=== PATIENT | male | born 1995 | race Caucasian/White ===

== ENCOUNTER 2019-09-04 07:22 | Emergency (ER) | payer BC ==
--- NOTE | 2019-09-04 08:36 | ED ---
Throat Pain/Nasal Congestion - HPI Summary HPI Summary: 24 yr old male with sore throat for three days. No fever or chills. No NV. He is a student. He denies trouble swallowing. No change in voice. he also complains of 3/10 right flank pain. Onset yesterday. no better or worse with anything. no testicular pain. No dysuria, no frequency of urination. No other complaints. - History of Current Complaint Chief Complaint: UCGeneralIllness Time Seen by Provider: 09/04/19 07:48 - Allergies/Home Medications Allergies/Adverse Reactions: Allergies Allergy/AdvReac Type Severity Reaction Status Date / Time No Known Allergies Allergy Verified 09/04/19 07:40 Home Medications: Home Medications NK [No Home Medications Reported] 09/04/19 [History Confirmed 09/04/19] PMH/Surg Hx/FS Hx/Imm Hx Infectious Disease History: No Infectious Disease History: Denies: Traveled Outside the [place] in Last 30 Days - Family History Known Family History: Positive: None - Social History Occupation: Student Alcohol Use: Occasionally Substance Use Type: Reports: None Smoking Status (MU): Never Smoked Tobacco Review of Systems Constitutional: Negative Positive: Ear Ache Positive: flank pain All Other Systems Reviewed And Are Negative: Yes Physical Exam Triage Information Reviewed: Yes Vital Signs On Initial Exam: Initial Vitals Temp Pulse Resp BP Pulse Ox 98.3 F 90 16 116/82 100 09/04/19 07:39 09/04/19 07:39 09/04/19 07:39 09/04/19 07:39 09/04/19 07:39 Vital Signs Reviewed: Yes Appearance: Positive: Well-Appearing, No Pain Distress Skin: Positive: Warm Head/Face: Positive: Normal Head/Face Inspection Eyes: Positive: EOMI ENT: Positive: Normal ENT inspection, Pharyngeal erythema, TMs normal Neck: Positive: Nontender Respiratory/Lung Sounds: Positive: Clear to Auscultation, Breath Sounds Present Cardiovascular: Positive: RRR. Negative: Murmur Abdomen Description: Positive: Nontender, Soft. Negative: CVA Tenderness (R), CVA Tenderness (L), Distended Musculoskeletal: Positive: Strength/ROM Intact Neurological: Positive: Sensory/Motor Intact, Alert, Oriented to Person Place, Time, CN Intact II-III, Normal Gait, Speech Normal Diagnostics - Vital Signs Vital Signs Temp Pulse Resp BP Pulse Ox 09/04/19 07:39 98.3 F 90 16 116/82 100 - Laboratory Lab Results: Lab Results 09/04/19 09/04/19 Range/Units 07:55 07:56 POC Urine Color Yellow POC Urine Clarity Clear POC Urine pH 5.5 (5-9) POC Ur Specif [place] 1.025 (1.010-1.030) POC Urine Protein Negative (Negative) POC Ur Glucose (UA) Negative (Negative) POC Urine Ketones Negative (Negative) POC Urine Blood Trace-intact A (Negative) POC Urine Nitrite Negative (Negative) POC Urine Bilirubin Negative (Negative) POC Urine Urobilinogen 0.2 (Negative) POC U Leukocyte Esteras Negative (Negative) Group A Strep Rapid Negative (Negative) Lab Statement: Any lab studies that have been ordered have been reviewed, and results considered in the medical decision making process. - Ultrasound renal Ultrasound Interpretation Completed By: Radiologist - nad EENT Course/Dx - Course Course Of Treatment: 24 yr old with pharyngitis neg strep; right flank pain, trace blood and neg US. FU with PMD. - Diagnoses Provider Diagnoses: Right flank pain, Upper respiratory infection Discharge ED - Sign-Out/Discharge Documenting (check all that apply): Patient Departure All imaging exams completed and their final reports reviewed: Yes - Discharge Plan Condition: Good Disposition: HOME Patient Education Materials: Pharyngitis (ED), Hematuria (ED), Flank Pain (ED) Referrals: Melyssa MONTANO,Lv Mccain [Primary Care Provider] - 2 Days - Billing Disposition and Condition Condition: GOOD Disposition: Home
[2019-09-04 09:54] VITALS: BP 107/62
== END 2019-09-04 09:59 | disposition home or self-care (01) ==
LOC: UCCORT 07:22
DX: J06.9 Acute upper respiratory infection, unspecified (principal); J02.9 Acute pharyngitis, unspecified; R10.9 Unspecified abdominal pain; H92.09 Otalgia, unspecified ear
CPT/HCPCS: 76775; 81003; 87651; 99202; G0463

== ENCOUNTER 2019-11-28 07:43 | Emergency (ER) | payer BC ==
[2019-11-28 07:59] VITALS: BP 115/63
[2019-11-28] MEDS ORDERED: Ibuprofen TAB* 600 MG PO ONE (08:03)
[2019-11-28 08:09] LABS: Influenza A Molecular POSITIVE (Negative)
--- NOTE | 2019-11-28 08:30 | UC ---
FLU HPI - HPI Summary HPI Summary: Pt presents to reporting body aches, cough, sore throat, congestion progressive x 36 hours Pt with decrease appetite, no n/v/d No rash + sick contact little OTC meds -none today medicaitons as entered in EMR by physiatrist reviewed - History of Current Complaint Chief Complaint: UCGeneralIllness Stated Complaint: FLU LIKE SYMPTOMS Time Seen by Provider: 11/28/19 08:22 Pain Intensity: 4 - Allergy/Home Medications Allergies/Adverse Reactions: Allergies Allergy/AdvReac Type Severity Reaction Status Date / Time No Known Allergies Allergy Verified 11/28/19 07:55 Home Medications: Home Medications D-Methorphan/PE/Acetaminophen [Daytime Cold Multi-Symp Gelcap] 1 each PO ONCE [History Confirmed 11/28/19] PMH/Surg Hx/FS Hx/Imm Hx Previously Healthy: Yes - Surgical History Surgical History: Yes Surgery Procedure, Year, and Place: wisdom. adenoidectomy - Family History Known Family History: Positive: Non-Contributory - Social History Occupation: Employed Full-time Lives: With Family Alcohol Use: Occasionally Substance Use Type: None Smoking Status (MU): Never Smoked Tobacco Review of Systems All Other Systems Reviewed And Are Negative: Yes Constitutional: Positive: Fever, Fatigue ENT: Positive: Sore Throat, Nasal Discharge, Sinus Congestion, Sinus Pain/ Tenderness Respiratory: Positive: Cough Cardiovascular: Positive: Negative Gastrointestinal: Positive: Nausea Physical Exam - Summary Physical Exam Summary: Vital Signs Reviewed: Yes A+Ox3, tired appearing, congested Eyes: Conjunctiva Clear, SEVER[place]. EOM intact and full ENT: Hearing grossly normal TM x 2 clear, turbinates inflammed, +PND, mmoist, uvula midline, no exudate, no erythema Neck: Positive: Supple Respiratory: Positive: No respiratory distress, No accessory muscle use + CTA throughout no w/r, intermittent cough Cardiovascular: RRR nl s1, s2 no m/r CBT <2 sec abd soft + BS nt/nd no guarding, no distension Musculoskeletal Exam: FAULKNRE x 4 without difficulty Strength Intact, ROM Intact Neurological: Positive: Alert, + sensation throughout Psychological: Positive: Normal Response To correctional counselor Skin: Positive: no rash, no ecchymosis Vital Signs: Initial Vital Signs Temp 102.6 F 11/28/19 07:55 Pulse 109 11/28/19 07:55 Resp 15 11/28/19 07:55 BP 115/63 11/28/19 07:55 Pulse Ox 97 11/28/19 07:55 Flu Course/Dx - Course Course Of Treatment: Pt presents with 2 days congestion, fever, cough, sore throat. PT has not take PTC meds today. decreased appetitis on exam pt with fever and elevated HR appears tired, congestion lungs clear with itnermittent cough will give antipyretic + influenza secretion precaution humidified air hydrate motrin/apap rest return precaution worlk note - Differential Dx/Diagnosis Differential Diagnosis/HQI/PQRI: Bronchitis Provider Diagnosis: Influenza Discharge ED - Sign-Out/Discharge Documenting (check all that apply): Patient Departure All imaging exams completed and their final reports reviewed: No Studies - Discharge Plan Condition: Stable Disposition: HOME Prescriptions: Oseltamivir Phosphate [Tamiflu] 75 mg PO BID #10 capsule Patient Education Materials: Influenza (ED) Forms: *Work Release Referrals: Melyssa MONTANO,Lv Mccain [Primary Care Provider] - Additional Instructions: - Stay well hydrated. Drink plenty of non-alcoholic, non-caffinated beverages. - Take Tamiflu as prescribed - Alternate ibuprofen (Advil, Motrin) 600mg and Tylenol 1000mg every 3 hours for pain or fever. Take with food. Do NOT take for more than 4-5 days. - These infections are spread by secretions - do NOT share eating or drinking utensils - clean items you share with other people such as cell phones, computer mouse, TV remote, computer tablets,etc. Once you start to feel better, change your toothbrush and your pillowcase. - get plenty of restful sleep - humidify the air in the room where you sleep - boil water, run a hot steam shower, vaporizer, cups of water by heat register - okay to take over the counter decongestant and cough medication - contact your doctor or return with questions or concerns - Billing Disposition and Condition Condition: STABLE Disposition: Home
== END 2019-11-28 08:45 | disposition home or self-care (01) ==
LOC: UCCORT 07:43
DX: J11.1 Influenza due to unidentified influenza virus with other respiratory manifestations (principal)
CPT/HCPCS: 99212; A9270-GY; G0463